=== PATIENT | female | born 1980 ===

== ENCOUNTER 2018-10-20 11:46 | Inpatient (IN) | payer OTHER ==
[2018-10-20 11:46] VITALS: BMI 35.3
--- NOTE | 2018-10-20 12:46 | ED PDOC ---
HPI: Abdomen Time Seen by Provider: 10/20/18 12:30 Chief Complaint (Nursing): GI Problem Chief Complaint (Provider): EPIGASTRIC PAIN History Per: Patient History/Exam Limitations: no limitations Onset/Duration Of Symptoms: Days Outside of [place] travel?: No Current Symptoms Are (Timing): Still Present Severity: Moderate Pain Scale Rating Of: 7 Quality Of Discomfort: "Pain" Associated Symptoms: Nausea, Vomiting, Loss Of Appetite, Back Pain. denies: Fever, Chills, Diarrhea, Constipation, Urinary Symptoms Exacerbating Factors: Food Alleviating Factors: None Last Bowel Movement: Today (8AM TODAY) Additional History Per: Patient Additional Complaint(s): 38 Y/O FEMALE, NO MEDICAL HX PRESENTS TO THE ED WITH 3 DAY HISTORY OF EPIGASTRIC ABD PAIN SINCE MONDAY AFTERNOON AFTER LUNCH. SHE STATES SHE HAS EXP PAIN BEFORE LIGHT USUALLY AFTER EATING. PATIENT PAIN HAS "TWISTING" PAIN RAD TO RIGHT NECK AND MID BACK. SHE STATES SHE VOMITED ONCE THIS AM. NO MEDS TAKEN FOR PAIN AT HOME. PT DENIES SOB, DIARRHEA, URINARY SYMPTOMS, FEVER Abnormal Vaginal Bleeding: No Past Medical History Vital Signs: Last Vital Signs Temp 97 F L 10/20/18 12:05 Pulse 82 10/20/18 12:05 Resp 18 10/20/18 12:05 BP 141/85 10/20/18 12:05 Pulse Ox 99 10/20/18 12:05 - Medical History PMH: No Chronic Diseases - Surgical History Surgical History: No Surg Hx, (x 1) - Family History Family History: States: Unknown Family Hx - Living Arrangements Living Arrangements: With Family - Social History Alcohol: None Drugs: Denies - Immunization History Hx Tetanus Toxoid Vaccination: Yes Hx Influenza Vaccination: Yes Hx Pneumococcal Vaccination: Yes - Home Medications Home Medications: Ambulatory Orders Medication Instructions Recorded No Known Home Med 10/20/18 - Allergies Allergies/Adverse Reactions: Allergies Allergy/AdvReac Type Severity Reaction Status Date / Time No Known Allergies Allergy Verified 10/20/18 12:05 Review of Systems ROS Statement: Except As Marked, All Systems Reviewed And Found Negative Constitutional: Negative for: Fever, Chills, Weakness, Malaise Cardiovascular: Negative for: Chest Pain, Palpitations Respiratory: Negative for: Cough, Shortness of Breath, SOB with Exertion, Wheezing Gastrointestinal: Positive for: Nausea, Vomiting (ONE EPISODE TODAY ), Abdominal Pain. Negative for: Diarrhea, Constipation Genitourinary Female: Negative for: Dysuria Musculoskeletal: Positive for: Neck Pain (RIGHT SIDED ASSOCIATED WITH PAIN), Back Pain Neurological: Negative for: Weakness Physical Exam - Reviewed Nursing Documentation Reviewed: Yes Vital Signs Reviewed: Yes - Physical Exam Appears: Positive for: Well, Non-toxic, No Acute Distress Head Exam: Positive for: ATRAUMATIC, NORMAL INSPECTION, NORMOCEPHALIC Skin: Positive for: Normal Color, Warm, DRY Eye Exam: Positive for: Normal appearance, PERRL ENT: Positive for: Normal ENT Inspection Neck: Positive for: Normal, Painless ROM, Supple Cardiovascular/Chest: Positive for: Regular Rate, Rhythm, Chest Non Tender Respiratory: Positive for: CNT, Normal Breath Sounds Pulses-Radial (L): 2+ Pulses-Radial (R): 2+ Gastrointestinal/Abdominal: Positive for: Normal Exam, Bowel Sounds (NORMOACTIVE ), Soft, Tenderness (EPIGASTRIC/ RUQ). Negative for: Organomegaly, Mass, Distended, Guarding, Rebound Back: Positive for: Normal Inspection. Negative for: L CVA Tenderness, R CVA Tenderness Extremity: Positive for: Normal ROM Neurological/Psych: Positive for: Awake, Alert, Normal Tone, Oriented - Laboratory Results Result Diagrams: 10/20/18 13:15 10/20/18 13:15 Interpretation Of Abn Labs: WBC: 14.5 Urine POC: Negative - ECG ECG Rhythm: Positive for: Sinus Rhythm Interpretation Of ECG: SIGNED AND SEEN BY DR. THORPE O2 Sat by Pulse Oximetry: 99 Pulse Ox Interpretation: Normal - Radiology X-Ray: Viewed By Ia X-Ray Interpretation: No Acute Disease Medical Decision Making Medical Decision Making: --CBC --CMP --LIPASE --TROPONIN --IV INSERTION --TORADOL --ZOFRAN --PEPCID --CXR --US ABD/PELVIC 14:15: PATIENT RE--EVALUATED AT THIS TIME. PATIENT STATES ABD PAIN HAS IMPROVED. PENDING US REPORT. 15:45: DR. PARSONS, SX RESIDENT ONCALL, CALLED FOR SX CONSULT, MD WILL SEE PATIENT. 15:14 ABDOMEN US READ AND REVIEWED BY RADIOLOGIST FINDINGS: LIVER: Measures 16.6 cm in length. Normal echogenicity of the liver parenchyma. Upper limits normal size. No mass. No intrahepatic bile duct dilatation. GALLBLADDER: Extensive cholelithiasis identified layering within the dependent portion. No significant dilatation or mural thickening. No pericholecystic fluid collection or reported sonographic Shrestha sign. COMMON BILE DUCT: Measures 5.0 mm. No stones. No dilatation. PANCREAS: Unremarkable as visualized. No mass. No ductal dilatation. RIGHT KIDNEY: Measures 11.5 cm in length. Normal echogenicity. No calculus, mass, or hydronephrosis. AORTA: No aneurysmal dilatation. IVC: Unremarkable. OTHER FINDINGS: None . IMPRESSION: Cholelithiasis identified within a moderately distended gallbladder. No suspicious gallbladder findings otherwise evident. No reported sonographic Shrestha sign. Normal caliber CBD. No intrahepatic biliary dilatation. Liver upper limits normal size otherwise appear unremarkable. Unremarkable pancreas. 1620: CLINICAL FINDINGS DISCUSSED WITH PATIENT AND AGREES WITH PLAN. PATIENT FOR ADMISSION WITH SX CONSULT DR. ERAZO, SPOKE TO DR. DONALD FOR ADMISSION DX CHOLETHIASIS. Disposition - Clinical Impression Clinical Impression: Cholelithiasis Doctor Will See Patient In The: Hospital Counseled Patient/Family Regarding: Diagnosis - Disposition Disposition Time: 16:20 Condition: STABLE - Pt Status Changed To: Hospital Disposition Of: Inpatient - Admit Certification Admit to Inpatient:: After my assessment, the patient will require hospitalization for at least two midnights. This is because of the severity of symptoms shown, intensity of services needed, and/or the medical risk in this patient being treated as an outpatient. - POA Present On Arrival: None
[2018-10-20 13:23] LABS: BASO % 0.2 % (0.0-2.0); EOS % 0.2 % (0.0-4.0); HEMOGLOBIN 14.5 g/dL (12.0-16.0); LYMPH # 1.1 K/uL (1.0-4.3); LYMPH % 7.8 % (20.0-40.0); MEAN CELL VOLUME 84.8 fl (81.0-99.0); MEAN CORPUSCULAR HEMOGLOBIN 28.5 pg (27.0-31.0); MEAN CORPUSCULAR HGB CONC 33.6 g/dL (33.0-37.0); MONO # 0.7 K/uL (0.0-0.8); MONO % 5.1 % (0.0-10.0); NEUT # 12.6 K/uL (1.8-7.0); NEUT % 86.7 % (50.0-75.0); PLATELET COUNT 274 K/uL (130-400); RBC 5.08 Mil/uL (3.80-5.20); RED CELL DISTRIBUTION WIDTH 12.2 % (11.5-14.5); WHITE BLOOD COUNT 14.5 K/uL (4.8-10.8)
[2018-10-20] MEDS ORDERED: Sodium Chloride 0.9% 1,000 ML IV STA (13:24)
[2018-10-20 13:30] LABS: ALB/GLOB RATIO 1.3 (1.0-2.1); ALBUMIN 4.8 g/dL (3.5-5.0); ALT/SGPT 23 U/L (9-52); AST/SGOT 27 U/L (14-36); BLOOD UREA NITROGEN 16 mg/dl (7-17); CALCIUM 9.5 mg/dL (8.4-10.2); GFR NON-AFRICAN AMERICAN > 60; LIPASE 134 U/L (23-300)
[2018-10-20 13:37] LABS: SQUAMOUS EPITHIAL 3 /hpf (0-5); URINE AMORPHOUS SEDIMENT OCC /ul (<OCC); URINE BACTERIA RARE (<OCC); URINE BILIRUBIN NEGATIVE (NEGATIVE); URINE BLOOD SMALL (NEGATIVE); URINE CLARITY TURBID (Clear); URINE COLOR YELLOW (YELLOW); URINE GLUCOSE (UA) NEG (NEGATIVE); URINE LEUKOCYTE ESTERASE NEG Leu/uL (Negative); URINE PROTEIN 30 mg/dL (NEGATIVE); URINE UROBILINOGEN 0.2-1.0 mg/dL (0.2-1.0)
[2018-10-20 14:50] LABS: LYMPHOCYTE 8 % (20-50); MONOCYTE 5 % (0-10); NEUTROPHIL 87 % (42-75); PLATELET ESTIMATE NORMAL (NORMAL); TOTAL CELLS COUNTED 100
[2018-10-20] MEDS ORDERED: cefTRIAXone (Rocephin) 1 gm Inj IM STA (15:00)
[2018-10-20] MEDS ORDERED: cefTRIAXone 1,000 MG in PED IV SYRINGE 1 SYR IVPB STA (15:01)
--- NOTE | 2018-10-20 15:18 | US ---
Date of service: 10/20/2018 HISTORY: RUQ ABD PAIN COMPARISON: None. TECHNIQUE: Sonographic evaluation of the right upper quadrant of the abdomen. FINDINGS: LIVER: Measures 16.6 cm in length. Normal echogenicity of the liver parenchyma. Upper limits normal size. No mass. No intrahepatic bile duct dilatation. GALLBLADDER: Extensive cholelithiasis identified layering within the dependent portion. No significant dilatation or mural thickening. No pericholecystic fluid collection or reported sonographic Shrestha sign. COMMON BILE DUCT: Measures 5.0 mm. No stones. No dilatation. PANCREAS: Unremarkable as visualized. No mass. No ductal dilatation. RIGHT KIDNEY: Measures 11.5 cm in length. Normal echogenicity. No calculus, mass, or hydronephrosis. AORTA: No aneurysmal dilatation. IVC: Unremarkable. OTHER FINDINGS: None . IMPRESSION: Cholelithiasis identified within a moderately distended gallbladder. No suspicious gallbladder findings otherwise evident. No reported sonographic Shrestha sign. Normal caliber CBD. No intrahepatic biliary dilatation. Liver upper limits normal size otherwise appear unremarkable. Unremarkable pancreas.
--- NOTE | 2018-10-20 16:57 | CP.PCM.CON ---
<Rodríguez Love - Last Filed: 10/20/18 16:57> Past Patient History - Past Social History Alcohol: None Drugs: Denies - CARDIAC Other/Comment: coagulation/thrombus problem - PSYCHIATRIC Hx Substance Use: No - SURGICAL HISTORY Hx Surgeries: No Hx Section: Yes - ANESTHESIA Hx Anesthesia: No Meds Allergies/Adverse Reactions: Allergies Allergy/AdvReac Type Severity Reaction Status Date / Time No Known Allergies Allergy Verified 10/20/18 12:05 Results - Vital Signs Recent Vital Signs: Last Vital Signs Temp 97 F L 10/20/18 12:05 Pulse 82 10/20/18 12:05 Resp 18 10/20/18 12:05 BP 141/85 10/20/18 12:05 Pulse Ox 99 10/20/18 16:51 - Labs Result Diagrams: 10/20/18 13:15 10/20/18 13:15 Labs: Laboratory Results - last 24 hr 10/20/18 10/20/18 10/20/18 13:15 13:15 13:15 WBC 14.5 H RBC 5.08 Hgb 14.5 Hct 43.1 MCV 84.8 MCH 28.5 MCHC 33.6 RDW 12.2 Plt Count 274 MPV 8.0 Neut % (Auto) 86.7 H Lymph % (Auto) 7.8 L [place] % (Auto) 5.1 Eos % (Auto) 0.2 Baso % (Auto) 0.2 Neut # (Auto) 12.6 H Lymph # (Auto) 1.1 [place] # (Auto) 0.7 Eos # (Auto) 0.0 Baso # (Auto) 0.0 Neutrophils % (Manual) 87 H Lymphocytes % (Manual) 8 L Monocytes % (Manual) 5 Platelet Estimate Normal RBC Morphology Normal Sodium 138 Potassium 4.0 Chloride 103 Carbon Dioxide 22 Anion Gap 17 BUN 16 Creatinine 0.4 L Est GFR ( Amer) > 60 Est GFR (Non-Af Amer) > 60 Random Glucose 113 H Calcium 9.5 Total Bilirubin 0.3 AST 27 ALT 23 Alkaline Phosphatase 62 Troponin I < 0.0120 Total Protein 8.3 H Albumin 4.8 Globulin 3.5 Albumin/Globulin Ratio 1.3 Lipase 134 Urine Color Yellow Urine Clarity Turbid Urine pH 7.0 Ur Specific [place] 1.023 Urine Protein 30 Urine Glucose (UA) Neg Urine Ketones Negative Urine Blood Small Urine Nitrate Negative Urine Bilirubin Negative Urine Urobilinogen 0.2-1.0 Ur Leukocyte Esterase Neg Urine RBC (Auto) 6 H Urine Microscopic WBC 2 Ur Squamous Epith Cells 3 Amorphous Sediment Occ H Urine Bacteria Rare <Cricket Hernandez - Last Filed: 10/21/18 11:44> Meds - Medications Medications: Current Medications Sodium Chloride (Sodium Chloride 0.9%) 1,000 mls @ 100 mls/hr IV .Q10H [facility] Last Admin: 10/21/18 04:13 Dose: 100 mls/hr Piperacillin Sod/Tazobactam (Sod 3.375 gm/ Sodium Chloride) 100 mls @ 100 mls/hr IVPB Q6 [facility]; Protocol Last Admin: 10/21/18 04:04 Dose: 100 mls/hr Morphine Sulfate (Morphine) 2 mg IVP Q4 PRN PRN Reason: Pain, moderate (4-7) Pantoprazole Sodium (Protonix Inj) 40 mg IVP DAILY [facility] Last Admin: 10/21/18 09:48 Dose: 40 mg Results - Vital Signs Recent Vital Signs: Last Vital Signs Temp 98.7 F 10/21/18 08:17 Pulse 73 10/21/18 08:17 Resp 18 10/21/18 08:17 BP 112/73 10/21/18 08:17 Pulse Ox 98 10/21/18 08:17 - Labs Result Diagrams: 10/21/18 06:35 10/21/18 04:14 Labs: Laboratory Results - last 24 hr 10/20/18 10/20/18 10/20/18 13:15 13:15 13:15 WBC 14.5 H RBC 5.08 Hgb 14.5 Hct 43.1 MCV 84.8 MCH 28.5 MCHC 33.6 RDW 12.2 Plt Count 274 MPV 8.0 Neut % (Auto) 86.7 H Lymph % (Auto) 7.8 L [place] % (Auto) 5.1 Eos % (Auto) 0.2 Baso % (Auto) 0.2 Neut # (Auto) 12.6 H Lymph # (Auto) 1.1 [place] # (Auto) 0.7 Eos # (Auto) 0.0 Baso # (Auto) 0.0 Neutrophils % (Manual) 87 H Lymphocytes % (Manual) 8 L Monocytes % (Manual) 5 Platelet Estimate Normal RBC Morphology Normal PT INR APTT Sodium 138 Potassium 4.0 Chloride 103 Carbon Dioxide 22 Anion Gap 17 BUN 16 Creatinine 0.4 L Est GFR ( Amer) > 60 Est GFR (Non-Af Amer) > 60 Random Glucose 113 H Calcium 9.5 Phosphorus Magnesium Total Bilirubin 0.3 AST 27 ALT 23 Alkaline Phosphatase 62 Troponin I < 0.0120 Total Protein 8.3 H Albumin 4.8 Globulin 3.5 Albumin/Globulin Ratio 1.3 Lipase 134 Urine Color Yellow Urine Clarity Turbid Urine pH 7.0 Ur Specific [place] 1.023 Urine Protein 30 Urine Glucose (UA) Neg Urine Ketones Negative Urine Blood Small Urine Nitrate Negative Urine Bilirubin Negative Urine Urobilinogen 0.2-1.0 Ur Leukocyte Esterase Neg Urine RBC (Auto) 6 H Urine Microscopic WBC 2 Ur Squamous Epith Cells 3 Amorphous Sediment Occ H Urine Bacteria Rare Blood Type Antibody Screen BBK History Checked 10/21/18 10/21/18 10/21/18 04:14 04:14 04:14 WBC RBC Hgb Hct MCV MCH MCHC RDW Plt Count MPV Neut % (Auto) Lymph % (Auto) [place] % (Auto) Eos % (Auto) Baso % (Auto) Neut # (Auto) Lymph # (Auto) [place] # (Auto) Eos # (Auto) Baso # (Auto) Neutrophils % (Manual) Lymphocytes % (Manual) Monocytes % (Manual) Platelet Estimate RBC Morphology PT 11.9 INR 1.0 APTT 27.7 Sodium 138 Potassium 3.5 L Chloride 108 H Carbon Dioxide 21 L Anion Gap 13 BUN 13 Creatinine 0.5 L Est GFR ( Amer) > 60 Est GFR (Non-Af Amer) > 60 Random Glucose 82 Calcium 8.7 Phosphorus 3.8 Magnesium 2.2 Total Bilirubin 0.5 AST 16 ALT 28 Alkaline Phosphatase 49 Troponin I Total Protein 6.6 Albumin 3.8 Globulin 2.8 Albumin/Globulin Ratio 1.4 Lipase Urine Color Urine Clarity Urine pH Ur Specific [place] Urine Protein Urine Glucose (UA) Urine Ketones Urine Blood Urine Nitrate Urine Bilirubin Urine Urobilinogen Ur Leukocyte Esterase Urine RBC (Auto) Urine Microscopic WBC Ur Squamous Epith Cells Amorphous Sediment Urine Bacteria Blood Type B POSITIVE Antibody Screen Negative BBK History Checked Patient has bt 10/21/18 06:35 WBC 7.0 D RBC 4.56 Hgb 13.1 Hct 38.6 MCV 84.6 MCH 28.8 MCHC 34.1 RDW 12.1 Plt Count 232 MPV 8.2 Neut % (Auto) 57.1 Lymph % (Auto) 32.7 [place] % (Auto) 7.4 Eos % (Auto) 2.5 Baso % (Auto) 0.3 Neut # (Auto) 4.0 Lymph # (Auto) 2.3 [place] # (Auto) 0.5 Eos # (Auto) 0.2 Baso # (Auto) 0.0 Neutrophils % (Manual) Lymphocytes % (Manual) Monocytes % (Manual) Platelet Estimate RBC Morphology PT INR APTT Sodium Potassium Chloride Carbon Dioxide Anion Gap BUN Creatinine Est GFR ( Amer) Est GFR (Non-Af Amer) Random Glucose Calcium Phosphorus Magnesium Total Bilirubin AST ALT Alkaline Phosphatase Troponin I Total Protein Albumin Globulin Albumin/Globulin Ratio Lipase Urine Color Urine Clarity Urine pH Ur Specific [place] Urine Protein Urine Glucose (UA) Urine Ketones Urine Blood Urine Nitrate Urine Bilirubin Urine Urobilinogen Ur Leukocyte Esterase Urine RBC (Auto) Urine Microscopic WBC Ur Squamous Epith Cells Amorphous Sediment Urine Bacteria Blood Type Antibody Screen BBK History Checked Assessment & Plan - Assessment and Plan (Free Text) Assessment: cholecystitis, will book lap [place] make npo past midnight
--- NOTE | 2018-10-20 17:13 | CP.PCM.HP ---
<Arian Bee - Last Filed: 10/20/18 17:13> History of Present Illness - History of Present Illness History of Present Illness: 48 yo F with pmhx of hypertriglyceridemia presents to the ED with 3 day history of epigastric pain. pain is pressure like, intermittent, lasting seconds to minutes, rated 9/10, worse with meals, radiates to back. Associated with nausea and NBNB vomiting. Pt tried to take advil without relief. Denies hx of similar symptoms or gall stones. No fever, chills, abdominal trauma. PMD: with was seen at [facility] clinic Surg: in 2014 Soc: denies: smoking, alcohol, illicit drugs; lives with son Fam: fatty liver; denies htn, dm, gallbladder issues Meds: none NKDA LMP 09/28/2018; regular cycles Present on Admission - Present on Admission Any Indicators Present on Admission: No History of Uncontrolled Diabetes: No Urinary Catheter: No Review of Systems - Cardiovascular Cardiovascular: absent: Chest Pain - Respiratory Respiratory: absent: Cough, Dyspnea - Gastrointestinal Gastrointestinal: Abdominal Pain, Nausea, Vomiting. absent: Constipation, Diarrhea - Genitourinary Genitourinary: absent: Dysuria - Reproductive: Female Reproductive:Female: As Per HPI - Menstruation Menstruation: As Per HPI - Musculoskeletal Musculoskeletal: absent: Abnormal Gait Past Patient History - Past Social History Smoking Status: Never Smoked Alcohol: None Drugs: Denies Home Situation {Lives}: With Family - CARDIAC Hx Hypercholesterolemia: Yes (triglycerides) Other/Comment: coagulation/thrombus problem - PSYCHIATRIC Hx Substance Use: No - SURGICAL HISTORY Hx Surgeries: No Hx Section: Yes - ANESTHESIA Hx Anesthesia: No Meds Allergies/Adverse Reactions: Allergies Allergy/AdvReac Type Severity Reaction Status Date / Time No Known Allergies Allergy Verified 10/20/18 12:05 Physical Exam - Constitutional Appears: No Acute Distress - Eye Exam Eye Exam: EOMI - ENT Exam ENT Exam: Mucous Membranes Moist - Respiratory Exam Respiratory Exam: Clear to Auscultation Bilateral, NORMAL BREATHING PATTERN. absent: Wheezes - Cardiovascular Exam Cardiovascular Exam: REGULAR RHYTHM, +S1, +S2 - GI/Abdominal Exam GI & Abdominal Exam: Guarding, Normal Bowel Sounds, Soft, Tenderness Additional comments: Shrestha's positive - Back Exam Back exam: absent: CVA tenderness (L), CVA tenderness (R) - Neurological Exam Neurological exam: Alert, CN II-XII Intact, Oriented x3 - Psychiatric Exam Psychiatric exam: Normal Affect, Normal Mood Results - Vital Signs Recent Vital Signs: Last Vital Signs Temp 97 F L 10/20/18 12:05 Pulse 82 10/20/18 12:05 Resp 18 10/20/18 12:05 BP 141/85 10/20/18 12:05 Pulse Ox 99 10/20/18 17:02 - Labs Result Diagrams: 10/20/18 13:15 10/20/18 13:15 Labs: Laboratory Results - last 24 hr 10/20/18 10/20/18 10/20/18 13:15 13:15 13:15 WBC 14.5 H RBC 5.08 Hgb 14.5 Hct 43.1 MCV 84.8 MCH 28.5 MCHC 33.6 RDW 12.2 Plt Count 274 MPV 8.0 Neut % (Auto) 86.7 H Lymph % (Auto) 7.8 L [place] % (Auto) 5.1 Eos % (Auto) 0.2 Baso % (Auto) 0.2 Neut # (Auto) 12.6 H Lymph # (Auto) 1.1 [place] # (Auto) 0.7 Eos # (Auto) 0.0 Baso # (Auto) 0.0 Neutrophils % (Manual) 87 H Lymphocytes % (Manual) 8 L Monocytes % (Manual) 5 Platelet Estimate Normal RBC Morphology Normal Sodium 138 Potassium 4.0 Chloride 103 Carbon Dioxide 22 Anion Gap 17 BUN 16 Creatinine 0.4 L Est GFR ( Amer) > 60 Est GFR (Non-Af Amer) > 60 Random Glucose 113 H Calcium 9.5 Total Bilirubin 0.3 AST 27 ALT 23 Alkaline Phosphatase 62 Troponin I < 0.0120 Total Protein 8.3 H Albumin 4.8 Globulin 3.5 Albumin/Globulin Ratio 1.3 Lipase 134 Urine Color Yellow Urine Clarity Turbid Urine pH 7.0 Ur Specific [place] 1.023 Urine Protein 30 Urine Glucose (UA) Neg Urine Ketones Negative Urine Blood Small Urine Nitrate Negative Urine Bilirubin Negative Urine Urobilinogen 0.2-1.0 Ur Leukocyte Esterase Neg Urine RBC (Auto) 6 H Urine Microscopic WBC 2 Ur Squamous Epith Cells 3 Amorphous Sediment Occ H Urine Bacteria Rare Assessment & Plan - Assessment and Plan (Free Text) Assessment: 48 yo F with pmhx of hypertriglyceridemia presents to the ED with 3 day history of epigastric pain. Admitted for acute cholecystitis. Plan: Cholelithiasis US Abdo: Cholelithiasis identified within a moderately distended gallbladder. No suspicious gallbladder findings otherwise evident. No reported sonographic Shrestha sign. Normal caliber CBD. No intrahepatic biliary dilatation. Liver upper limits normal size otherwise appear unremarkable. Unremarkable pancreas. -Admit to med surg -Surgery consulted: Dr. Hernandez: estevan appreciated -NPO -Pain management: morphine -IVF: NS -Nausea: sofran -abx: IV zosyn -f/u am labs DVT prophylaxis -SCD; activity as tolerated Case and plan d/w Dr. Elpidio Bee MD PGY-2 <Jonathan Magallanes D - Last Filed: 10/20/18 19:08> Results - Vital Signs Recent Vital Signs: Last Vital Signs Temp 97.6 F 10/20/18 17:29 Pulse 76 10/20/18 17:29 Resp 20 10/20/18 17:29 BP 126/67 10/20/18 17:29 Pulse Ox 98 10/20/18 17:29 - Labs Result Diagrams: 10/20/18 13:15 10/20/18 13:15 Labs: Laboratory Results - last 24 hr 10/20/18 10/20/18 10/20/18 13:15 13:15 13:15 WBC 14.5 H RBC 5.08 Hgb 14.5 Hct 43.1 MCV 84.8 MCH 28.5 MCHC 33.6 RDW 12.2 Plt Count 274 MPV 8.0 Neut % (Auto) 86.7 H Lymph % (Auto) 7.8 L [place] % (Auto) 5.1 Eos % (Auto) 0.2 Baso % (Auto) 0.2 Neut # (Auto) 12.6 H Lymph # (Auto) 1.1 [place] # (Auto) 0.7 Eos # (Auto) 0.0 Baso # (Auto) 0.0 Neutrophils % (Manual) 87 H Lymphocytes % (Manual) 8 L Monocytes % (Manual) 5 Platelet Estimate Normal RBC Morphology Normal Sodium 138 Potassium 4.0 Chloride 103 Carbon Dioxide 22 Anion Gap 17 BUN 16 Creatinine 0.4 L Est GFR ( Amer) > 60 Est GFR (Non-Af Amer) > 60 Random Glucose 113 H Calcium 9.5 Total Bilirubin 0.3 AST 27 ALT 23 Alkaline Phosphatase 62 Troponin I < 0.0120 Total Protein 8.3 H Albumin 4.8 Globulin 3.5 Albumin/Globulin Ratio 1.3 Lipase 134 Urine Color Yellow Urine Clarity Turbid Urine pH 7.0 Ur Specific [place] 1.023 Urine Protein 30 Urine Glucose (UA) Neg Urine Ketones Negative Urine Blood Small Urine Nitrate Negative Urine Bilirubin Negative Urine Urobilinogen 0.2-1.0 Ur Leukocyte Esterase Neg Urine RBC (Auto) 6 H Urine Microscopic WBC 2 Ur Squamous Epith Cells 3 Amorphous Sediment Occ H Urine Bacteria Rare Attending/Attestation - Attestation I have personally seen and examined this patient.: Yes I have fully participated in the care of the patient.: Yes I have reviewed all pertinent clinical information: Yes Notes (Text): 10/20/18 19:07 Patient seen and examined with resident. Case discussed and agreed with assessment and plan of management.
[2018-10-20] MEDS: Sodium Chloride 0.9% 1,000 ML IV SCH (19:22)
[2018-10-20] MEDS ORDERED: Piperacillin/Tazobact 3.375 gm Inj IVPB ONE (21:36)
[2018-10-20] MEDS: Piperacillin/Tazobact 3.375 GM in Sodium Chloride 0.9% 100 ML IVPB SCH (21:41)
[2018-10-21] MEDS ORDERED: Piperacillin/Tazobact 3.375 gm Inj IVPB ONE (03:55)
[2018-10-21] MEDS: Piperacillin/Tazobact 3.375 GM in Sodium Chloride 0.9% 100 ML IVPB SCH ×4 (04:04→21:31)
[2018-10-21] MEDS: Sodium Chloride 0.9% 1,000 ML IV SCH ×2 (04:13→15:38)
[2018-10-21 04:34] LABS: PROTHROMBIN TIME 11.9 Seconds (9.8-13.1)
[2018-10-21 04:37] LABS: PARTIAL THROMBOPLASTIN TIME 27.7 Seconds (25.6-37.1)
[2018-10-21 04:58] LABS: ALB/GLOB RATIO 1.4 (1.0-2.1); ALBUMIN 3.8 g/dL (3.5-5.0); ALT/SGPT 28 U/L (9-52); AST/SGOT 16 U/L (14-36); BLOOD UREA NITROGEN 13 mg/dl (7-17); CALCIUM 8.7 mg/dL (8.4-10.2); GFR NON-AFRICAN AMERICAN > 60
[2018-10-21 07:20] LABS: BASO % 0.3 % (0.0-2.0); EOS # 0.2 K/uL (0.0-0.7); EOS % 2.5 % (0.0-4.0); HEMOGLOBIN 13.1 g/dL (12.0-16.0); LYMPH # 2.3 K/uL (1.0-4.3); LYMPH % 32.7 % (20.0-40.0); MEAN CELL VOLUME 84.6 fl (81.0-99.0); MEAN CORPUSCULAR HEMOGLOBIN 28.8 pg (27.0-31.0); MEAN CORPUSCULAR HGB CONC 34.1 g/dL (33.0-37.0); MEAN PLATELET VOLUME 8.2 fl (7.2-11.7); MONO # 0.5 K/uL (0.0-0.8); MONO % 7.4 % (0.0-10.0); NEUT % 57.1 % (50.0-75.0); NRBC % 0.1 % (0.0-0.0); RBC 4.56 Mil/uL (3.80-5.20); RED CELL DISTRIBUTION WIDTH 12.1 % (11.5-14.5)
[2018-10-21] MEDS ORDERED: Potassium Chloride 20 mEq ER Tab PO ONE (08:05)
--- NOTE | 2018-10-21 10:25 | CARD ---
APPROVED REPORT Date of service: 10/20/2018 EKG Measurement Heart [id number] <Conclusion> Normal sinus rhythm Normal ECG
--- NOTE | 2018-10-21 12:26 | CP.PCM.PN ---
Subjective - Date & Time of Evaluation Date of Evaluation: 10/21/18 Time of Evaluation: 09:00 - Subjective Subjective: General Surgery Note for Dr. Hernandez patient seen and examined at bedside. No acute event overnight. Patient still reports pain and nausea. She is not hungry. Patient wants to get surgery in order to feel better. Denies fever/chills chest pain, SOB, vomiting. Objective - Vital Signs/Intake and Output Vital Signs (last 24 hours): Temp Pulse Resp BP Pulse Ox 98.4 F 68 18 108/70 98 10/21/18 12:18 10/21/18 12:18 10/21/18 12:18 10/21/18 12:18 10/21/18 12:18 - Medications Medications: Current Medications Sodium Chloride (Sodium Chloride 0.9%) 1,000 mls @ 100 mls/hr IV .Q10H [facility] Last Admin: 10/21/18 04:13 Dose: 100 mls/hr Piperacillin Sod/Tazobactam (Sod 3.375 gm/ Sodium Chloride) 100 mls @ 100 m ls/hr IVPB Q6 [facility]; Protocol Last Admin: 10/21/18 04:04 Dose: 100 mls/hr Morphine Sulfate (Morphine) 2 mg IVP Q4 PRN PRN Reason: Pain, moderate (4-7) Pantoprazole Sodium (Protonix Inj) 40 mg IVP DAILY [facility] Last Admin: 10/21/18 09:48 Dose: 40 mg - Labs Labs: 10/21/18 06:35 10/21/18 04:14 PT 11.9 Seconds (9.8-13.1) 10/21/18 04:14 INR 1.0 10/21/18 04:14 APTT 27.7 Seconds (25.6-37.1) 10/21/18 04:14 - Constitutional Appears: No Acute Distress - Head Exam Head Exam: ATRAUMATIC, NORMOCEPHALIC - Eye Exam Eye Exam: EOMI, Normal appearance Pupil Exam: PERRL - ENT Exam ENT Exam: Mucous Membranes Moist - Respiratory Exam Respiratory Exam: NORMAL BREATHING PATTERN - Cardiovascular Exam Cardiovascular Exam: REGULAR RHYTHM - GI/Abdominal Exam GI & Abdominal Exam: Soft, Tenderness (RUQ), Normal Bowel Sounds. absent: Distended, Firm, Guarding, Rigid, Rebound - Extremities Exam Extremities Exam: Normal Capillary Refill - Neurological Exam Neurological Exam: Alert, Awake, Oriented x3 - Psychiatric Exam Psychiatric exam: Normal Affect, Normal Mood - Skin Skin Exam: Dry, Intact, Warm Assessment and Plan - Assessment and Plan (Free Text) Assessment: 38F with cholecystitis Plan: -NPO past MN -Pain control -Anti-emetics PRN -Plan for OR Monday -Discussed with Dr. David Love PGY2
--- NOTE | 2018-10-21 13:43 | CP.PCM.PN ---
<Shanna Kirkland - Last Filed: 10/21/18 14:02> Subjective - Date & Time of Evaluation Date of Evaluation: 10/21/18 Time of Evaluation: 13:42 - Subjective Subjective: Patient seen and examined bedside. Continues to complain of pain, nausea and loss of appetite but denies fever, chills, vomiting, chest pain and shortness of breath.m OR planned for tomorrow, 10/22. Objective - Vital Signs/Intake and Output Vital Signs (last 24 hours): Temp Pulse Resp BP Pulse Ox 98.4 F 68 18 108/70 98 10/21/18 12:18 10/21/18 12:18 10/21/18 12:18 10/21/18 12:18 10/21/18 12:18 - Medications Medications: Current Medications Sodium Chloride (Sodium Chloride 0.9%) 1,000 mls @ 100 mls/hr IV .Q10H COUNT INCLUDES THE [facility] Last Admin: 10/21/18 04:13 Dose: 100 mls/hr Piperacillin Sod/Tazobactam (Sod 3.375 gm/ Sodium Chloride) 100 mls @ 100 mls/hr IVPB Q6 COUNT INCLUDES THE [facility]; Protocol Last Admin: 10/21/18 12:45 Dose: 100 mls/hr Morphine Sulfate (Morphine) 2 mg IVP Q4 PRN PRN Reason: Pain, moderate (4-7) Pantoprazole Sodium (Protonix Inj) 40 mg IVP DAILY COUNT INCLUDES THE [facility] Last Admin: 10/21/18 09:48 Dose: 40 mg - Labs Labs: 10/21/18 06:35 10/21/18 04:14 PT 11.9 Seconds (9.8-13.1) 10/21/18 04:14 INR 1.0 10/21/18 04:14 APTT 27.7 Seconds (25.6-37.1) 10/21/18 04:14 - Constitutional Appears: Non-toxic - Head Exam Head Exam: NORMAL INSPECTION - Respiratory Exam Respiratory Exam: NORMAL BREATHING PATTERN. absent: Respiratory Distress - Cardiovascular Exam Cardiovascular Exam: REGULAR RHYTHM - GI/Abdominal Exam GI & Abdominal Exam: Tenderness (RUQ, mildly tender to deep palpation) - Extremities Exam Extremities Exam: absent: Pedal Edema - Neurological Exam Neurological Exam: Alert, Awake, Oriented x3 - Psychiatric Exam Psychiatric exam: Normal Affect, Normal Mood - Skin Skin Exam: Dry, Intact, Normal Color, Warm Assessment and Plan - Assessment and Plan (Free Text) Assessment: 48 yo F with pmhx of hypertriglyceridemia presents to the ED with 3 day history of epigastric pain, admitted for acute cholecystitis. US Abdo: Cholelithiasis identified within a moderately distended gallbladder. No suspicious gallbladder findings otherwise evident. No reported sonographic Shrestha sign. Normal caliber CBD. No intrahepatic biliary dilatation. Liver upper limits normal size otherwise appear unremarkable. Unremarkable pancreas. Plan: Cholelithiasis -Surgery consulted: Dr. Hernandez: OR Monday, 10/22 -NPO -Pain management: morphine -IVF: NS -Nausea: zofran -abx: IV zosyn DVT prophylaxis -SCD; activity as tolerated <Jonathan Magallanes - Last Filed: 10/21/18 14:33> Objective - Vital Signs/Intake and Output Vital Signs (last 24 hours): Temp Pulse Resp BP Pulse Ox 98.4 F 68 18 108/70 98 10/21/18 12:18 10/21/18 12:18 10/21/18 12:18 10/21/18 12:18 10/21/18 12:18 - Medications Medications: Current Medications Sodium Chloride (Sodium Chloride 0.9%) 1,000 mls @ 100 mls/hr IV .Q10H [facility] Last Admin: 10/21/18 04:13 Dose: 100 mls/hr Piperacillin Sod/Tazobactam (Sod 3.375 gm/ Sodium Chloride) 100 mls @ 100 mls/hr IVPB Q6 [facility]; Protocol Last Admin: 10/21/18 12:45 Dose: 100 mls/hr Morphine Sulfate (Morphine) 2 mg IVP Q4 PRN PRN Reason: Pain, moderate (4-7) Pantoprazole Sodium (Protonix Inj) 40 mg IVP DAILY [facility] Last Admin: 10/21/18 09:48 Dose: 40 mg - Labs Labs: 10/21/18 06:35 10/21/18 04:14 PT 11.9 Seconds (9.8-13.1) 10/21/18 04:14 INR 1.0 10/21/18 04:14 APTT 27.7 Seconds (25.6-37.1) 10/21/18 04:14 Attending/Attestation - Attestation I have personally seen and examined this patient.: Yes I have fully participated in the care of the patient.: Yes I have reviewed all pertinent clinical information, including history, physical exam and plan: Yes Notes (Text): 10/21/18 14:32 Patient seen and examined with resident. Case discussed and agreed with assessment and plan of surgery tomorrow.
[2018-10-22] MEDS: Lactated Ringer's 1,000 ML IV SCH ×3 (00:16→18:16)
[2018-10-22] MEDS: Piperacillin/Tazobact 3.375 GM in Sodium Chloride 0.9% 100 ML IVPB SCH ×3 (04:00→16:28)
[2018-10-22 05:58] LABS: HEMOGLOBIN 12.8 g/dL (12.0-16.0); MEAN CELL VOLUME 85.2 fl (81.0-99.0); MEAN CORPUSCULAR HGB CONC 34.1 g/dL (33.0-37.0); RBC 4.43 Mil/uL (3.80-5.20); RED CELL DISTRIBUTION WIDTH 12.2 % (11.5-14.5); WHITE BLOOD COUNT 7.1 K/uL (4.8-10.8)
[2018-10-22 06:14] LABS: ALB/GLOB RATIO 1.3 (1.0-2.1); ALBUMIN 3.7 g/dL (3.5-5.0); ALT/SGPT 27 U/L (9-52); AST/SGOT 17 U/L (14-36); BLOOD UREA NITROGEN 14 mg/dl (7-17); CALCIUM 8.9 mg/dL (8.4-10.2); GFR NON-AFRICAN AMERICAN > 60
--- NOTE | 2018-10-22 10:15 | RAD ---
Date of service: 10/20/2018 HISTORY: COMPARISON: No prior. TECHNIQUE: Chest PA and lateral views FINDINGS: LUNGS: No active pulmonary disease. PLEURA: No significant pleural effusion identified. No pneumothorax apparent. CARDIOVASCULAR: No aortic atherosclerotic calcification present. Prominent cardiac silhouette. No pulmonary vascular congestion. OSSEOUS STRUCTURES: No significant abnormalities. VISUALIZED UPPER ABDOMEN: Normal. OTHER FINDINGS: None. IMPRESSION: No acute pulmonary disease. Cardiac silhouette appears prominent. No pulmonary vascular congestion.
[2018-10-22] MEDS ORDERED: Midazolam 2 MG/2 ML VIAL ONE (11:12)
[2018-10-22] MEDS ORDERED: Lidocaine 4% (Laryng-O-Jet) Kit MM ONE (11:12)
[2018-10-22] MEDS ORDERED: Rocuronium 10 mg/ml (5 ml) ONE (11:12)
[2018-10-22] MEDS ORDERED: Propofol 10 mg/ml Inj (20 ML) ONE (11:12)
[2018-10-22] MEDS ORDERED: Succinylcholine 200 mg/10 ml Inj IV ONE (11:18)
[2018-10-22] MEDS ORDERED: Succinylcholine Chloride 20 mg/ml Syr (5 ml) IV ONE (11:19)
[2018-10-22] MEDS ORDERED: Neostigmine 1:1000 (1 mg/ml) Inj ONE (11:19)
[2018-10-22] MEDS ORDERED: Lactated Ringer's 1,000 ML IV ONE (12:17)
[2018-10-22] MEDS ORDERED: Bupivacaine 0.5% Inj(30mL) ONE (12:19)
[2018-10-22] MEDS ORDERED: Dexamethasone 4 mg/1 ml ONE (13:06)
--- NOTE | 2018-10-22 13:33 | PCM.SURG1 ---
<Yash Cabrera - Last Filed: 10/22/18 13:31> Surgeon's Initial Post Op Note - Surgeon's Notes Surgeon: Dr. Moreau Drug Room Operator: Dr. Rick Deleon PGY3 Type of Anesthesia: General Endo Pre-Operative Diagnosis: cholecystitis Operative Findings: same Post-Operative Diagnosis: same Operation Performed: laparoscopic cholecystectomy Specimen/Specimens Removed: gallbladder Estimated Blood Loss: EBL {In ML}: 40 Blood Products Given: N/A Drains Used: No Drains Post-Op Condition: Good Date of Surgery/Procedure: 10/22/18 Time of Surgery/Procedure: 13:32 <Jhonny Moreau - Last Filed: 10/22/18 13:46> Surgeon's Initial Post Op Note - Surgeon's Notes Surgeon: Dr. Catherine Drug Room Operator: Dr. Rick Latham PGY3
[2018-10-22] MEDS ORDERED: Lactated Ringer's 500 ML IV ONE (13:38)
[2018-10-22] MEDS ORDERED: HYDROmorphone 0.5 mg/0.5 ml ISec IVP PRN (13:45)
[2018-10-22] MEDS ORDERED: Lactated Ringer's 1,000 ML IV SCH (13:45)
[2018-10-22 15:19] VITALS: RESP 18
[2018-10-22] MEDS ORDERED: Oxycodone/Acetaminophen 5/325 mg Tab PO PRN (15:37)
[2018-10-22 16:06] VITALS: PULSE 94
[2018-10-22 16:13] VITALS: BP 125/78; TEMP 98.1; O2SAT 94
--- NOTE | 2018-10-22 16:53 | CP.PCM.DIS ---
<Love Robin - Last Filed: 10/22/18 17:19> Provider - Provider Date of Admission: 10/20/18 16:42 Attending physician: Jonathan Magallanes MD Consults: 10/20/18 17:18 General Surgery Consult Stat Comment: Consulting Provider: Cricket Hernandez Consulting Physician: Cricket Hernandez Reason for Consult: cholecystitis Time Spent in preparation of Discharge (in minutes): 30 Hospital Course - Lab Results Lab Results: Most Recent Lab Values WBC 7.1 K/uL (4.8-10.8) 10/22/18 04:50 RBC 4.43 Mil/uL (3.80-5.20) 10/22/18 04:50 Hgb 12.8 g/dL (12.0-16.0) 10/22/18 04:50 Hct 37.7 % (34.0-47.0) 10/22/18 04:50 MCV 85.2 fl (81.0-99.0) 10/22/18 04:50 MCH 29.0 pg (27.0-31.0) 10/22/18 04:50 MCHC 34.1 g/dL (33.0-37.0) 10/22/18 04:50 RDW 12.2 % (11.5-14.5) 10/22/18 04:50 Plt Count 238 K/uL (130-400) 10/22/18 04:50 MPV 8.2 fl (7.2-11.7) 10/21/18 06:35 Neut % (Auto) 57.1 % (50.0-75.0) 10/21/18 06:35 Lymph % (Auto) 32.7 % (20.0-40.0) 10/21/18 06:35 Owen % (Auto) 7.4 % (0.0-10.0) 10/21/18 06:35 Eos % (Auto) 2.5 % (0.0-4.0) 10/21/18 06:35 Baso % (Auto) 0.3 % (0.0-2.0) 10/21/18 06:35 Neut # (Auto) 4.0 K/uL (1.8-7.0) 10/21/18 06:35 Lymph # (Auto) 2.3 K/uL (1.0-4.3) 10/21/18 06:35 Owen # (Auto) 0.5 K/uL (0.0-0.8) 10/21/18 06:35 Eos # (Auto) 0.2 K/uL (0.0-0.7) 10/21/18 06:35 Baso # (Auto) 0.0 K/uL (0.0-0.2) 10/21/18 06:35 Neutrophils % (Manual) 87 % (42-75) H 10/20/18 13:15 Lymphocytes % (Manual) 8 % (20-50) L 10/20/18 13:15 Monocytes % (Manual) 5 % (0-10) 10/20/18 13:15 Platelet Estimate Normal (NORMAL) 10/20/18 13:15 RBC Morphology Normal (NORMAL) 10/20/18 13:15 PT 11.9 Seconds (9.8-13.1) 10/21/18 04:14 INR 1.0 10/21/18 04:14 APTT 27.7 Seconds (25.6-37.1) 10/21/18 04:14 Sodium 137 mmol/l (132-148) 10/22/18 04:50 Potassium 4.0 MMOL/L (3.6-5.0) 10/22/18 04:50 Chloride 105 mmol/L (98-107) 10/22/18 04:50 Carbon Dioxide 24 mmol/L (22-30) 10/22/18 04:50 Anion Gap 12 (10-20) 10/22/18 04:50 BUN 14 mg/dl (7-17) 10/22/18 04:50 Creatinine 0.6 mg/dl (0.7-1.2) L 10/22/18 04:50 Est GFR ( Amer) > 60 10/22/18 04:50 Est GFR (Non-Af Amer) > 60 10/22/18 04:50 Random Glucose 78 mg/dL (65-105) 10/22/18 04:50 Calcium 8.9 mg/dL (8.4-10.2) 10/22/18 04:50 Phosphorus 3.8 mg/dl (2.5-4.5) 10/21/18 04:14 Magnesium 2.2 MG/DL (1.6-2.3) 10/21/18 04:14 Total Bilirubin 0.7 mg/dl (0.2-1.3) 10/22/18 04:50 AST 17 U/L (14-36) 10/22/18 04:50 ALT 27 U/L (9-52) 10/22/18 04:50 Alkaline Phosphatase 42 U/L (38-126) 10/22/18 04:50 Troponin I < 0.0120 ng/mL (0.00-0.120) 10/20/18 13:15 Total Protein 6.5 G/DL (6.3-8.2) 10/22/18 04:50 Albumin 3.7 g/dL (3.5-5.0) 10/22/18 04:50 Globulin 2.8 gm/dL (2.2-3.9) 10/22/18 04:50 Albumin/Globulin Ratio 1.3 (1.0-2.1) 10/22/18 04:50 Lipase 134 U/L (23-300) 10/20/18 13:15 Urine Color Yellow (YELLOW) 10/20/18 13:15 Urine Clarity Turbid (Clear) 10/20/18 13:15 Urine pH 7.0 (5.0-8.0) 10/20/18 13:15 Ur Specific [place] 1.023 (1.003-1.030) 10/20/18 13:15 Urine Protein 30 mg/dL (NEGATIVE) 10/20/18 13:15 Urine Glucose (UA) Neg mg/dL (NEGATIVE) 10/20/18 13:15 Urine Ketones Negative mg/dL (NEGATIVE) 10/20/18 13:15 Urine Blood Small (NEGATIVE) 10/20/18 13:15 Urine Nitrate Negative (NEGATIVE) 10/20/18 13:15 Urine Bilirubin Negative (NEGATIVE) 10/20/18 13:15 Urine Urobilinogen 0.2-1.0 mg/dL (0.2-1.0) 10/20/18 13:15 Ur Leukocyte Esterase Neg Elle/uL (Negative) 10/20/18 13:15 Urine RBC (Auto) 6 /hpf (0-3) H 10/20/18 13:15 Urine Microscopic WBC 2 /hpf (0-5) 10/20/18 13:15 Ur Squamous Epith Cells 3 /hpf (0-5) 10/20/18 13:15 Amorphous Sediment Occ /ul (<OCC) H 10/20/18 13:15 Urine Bacteria Rare (<OCC) 10/20/18 13:15 Blood Type B POSITIVE 10/22/18 04:50 Antibody Screen Negative 10/22/18 04:50 BBK History Checked Patient has bt 10/22/18 04:50 - Hospital Course Hospital Course: 48 yo F with pmhx of hypertriglyceridemia who presented to ED with RUQ pain, admitted for cholecystectomy. Patient was seen today, POD 0 sp laparoscopic cholecystecomy, doing fairly well with pain as expected, tolerated with current pain medication regimen. Patient will be discharged home with Ibuprofen & percocet for pain. 1. Acute cholecystitis -Pain med regimen 2. hypertriglyceridemia Discharge Exam - Head Exam Head Exam: NORMAL INSPECTION Additional comments: obese female - Eye Exam Eye Exam: EOMI - ENT Exam ENT Exam: Mucous Membranes Moist - Neck Exam Neck exam: Full Rom - Respiratory Exam Respiratory Exam: NORMAL BREATHING PATTERN - Cardiovascular Exam Cardiovascular Exam: REGULAR RHYTHM, +S1, +S2 - GI/Abdominal Exam Additional comments: sites of laparoscopic cholecystectomy c/d/i; minimal tenderness, no rigidity, no guarding - Extremities Exam Extremities exam: normal inspection - Neurological Exam Neurological exam: Alert, Oriented x3 - Skin Skin Exam: Dry Discharge Plan - Discharge Medications Prescriptions: Docusate Sodium [Colace] 200 mg PO DAILY PRN #30 capsule PRN Reason: Constipation Ibuprofen [Motrin Tab] 600 mg PO Q6 PRN #20 tab PRN Reason: Pain, Moderate (4-7) oxyCODONE/Acetaminophen [Percocet 5/325 mg Tab] 1 ea PO Q6 PRN #20 tab PRN Reason: Pain, Severe (8-10) - Follow Up Plan Condition: STABLE Disposition: HOME/ ROUTINE Instructions: Gallstones Referrals: [facility] [Provider Group] Jhonny Moreau MD [Staff Provider] - <Jonathan Magallanes - Last Filed: 10/23/18 11:11> Provider - Provider Date of Admission: 10/20/18 16:42 Attending physician: Jonathan Magallanes MD Consults: 10/20/18 17:18 General Surgery Consult Stat Comment: Consulting Provider: Cricket Hernandez Consulting Physician: Cricket Hernandez Reason for Consult: cholecystitis Hospital Course - Lab Results Lab Results: Most Recent Lab Values WBC 7.1 K/uL (4.8-10.8) 10/22/18 04:50 RBC 4.43 Mil/uL (3.80-5.20) 10/22/18 04:50 Hgb 12.8 g/dL (12.0-16.0) 10/22/18 04:50 Hct 37.7 % (34.0-47.0) 10/22/18 04:50 MCV 85.2 fl (81.0-99.0) 10/22/18 04:50 MCH 29.0 pg (27.0-31.0) 10/22/18 04:50 MCHC 34.1 g/dL (33.0-37.0) 10/22/18 04:50 RDW 12.2 % (11.5-14.5) 10/22/18 04:50 Plt Count 238 K/uL (130-400) 10/22/18 04:50 MPV 8.2 fl (7.2-11.7) 10/21/18 06:35 Neut % (Auto) 57.1 % (50.0-75.0) 10/21/18 06:35 Lymph % (Auto) 32.7 % (20.0-40.0) 10/21/18 06:35 Owen % (Auto) 7.4 % (0.0-10.0) 10/21/18 06:35 Eos % (Auto) 2.5 % (0.0-4.0) 10/21/18 06:35 Baso % (Auto) 0.3 % (0.0-2.0) 10/21/18 06:35 Neut # (Auto) 4.0 K/uL (1.8-7.0) 10/21/18 06:35 Lymph # (Auto) 2.3 K/uL (1.0-4.3) 10/21/18 06:35 Owen # (Auto) 0.5 K/uL (0.0-0.8) 10/21/18 06:35 Eos # (Auto) 0.2 K/uL (0.0-0.7) 10/21/18 06:35 Baso # (Auto) 0.0 K/uL (0.0-0.2) 10/21/18 06:35 Neutrophils % (Manual) 87 % (42-75) H 10/20/18 13:15 Lymphocytes % (Manual) 8 % (20-50) L 10/20/18 13:15 Monocytes % (Manual) 5 % (0-10) 10/20/18 13:15 Platelet Estimate Normal (NORMAL) 10/20/18 13:15 RBC Morphology Normal (NORMAL) 10/20/18 13:15 PT 11.9 Seconds (9.8-13.1) 10/21/18 04:14 INR 1.0 10/21/18 04:14 APTT 27.7 Seconds (25.6-37.1) 10/21/18 04:14 Sodium 137 mmol/l (132-148) 10/22/18 04:50 Potassium 4.0 MMOL/L (3.6-5.0) 10/22/18 04:50 Chloride 105 mmol/L (98-107) 10/22/18 04:50 Carbon Dioxide 24 mmol/L (22-30) 10/22/18 04:50 Anion Gap 12 (10-20) 10/22/18 04:50 BUN 14 mg/dl (7-17) 10/22/18 04:50 Creatinine 0.6 mg/dl (0.7-1.2) L 10/22/18 04:50 Est GFR ( Amer) > 60 10/22/18 04:50 Est GFR (Non-Af Amer) > 60 10/22/18 04:50 Random Glucose 78 mg/dL (65-105) 10/22/18 04:50 Calcium 8.9 mg/dL (8.4-10.2) 10/22/18 04:50 Phosphorus 3.8 mg/dl (2.5-4.5) 10/21/18 04:14 Magnesium 2.2 MG/DL (1.6-2.3) 10/21/18 04:14 Total Bilirubin 0.7 mg/dl (0.2-1.3) 10/22/18 04:50 AST 17 U/L (14-36) 10/22/18 04:50 ALT 27 U/L (9-52) 10/22/18 04:50 Alkaline Phosphatase 42 U/L (38-126) 10/22/18 04:50 Troponin I < 0.0120 ng/mL (0.00-0.120) 10/20/18 13:15 Total Protein 6.5 G/DL (6.3-8.2) 10/22/18 04:50 Albumin 3.7 g/dL (3.5-5.0) 10/22/18 04:50 Globulin 2.8 gm/dL (2.2-3.9) 10/22/18 04:50 Albumin/Globulin Ratio 1.3 (1.0-2.1) 10/22/18 04:50 Lipase 134 U/L (23-300) 10/20/18 13:15 Urine Color Yellow (YELLOW) 10/20/18 13:15 Urine Clarity Turbid (Clear) 10/20/18 13:15 Urine pH 7.0 (5.0-8.0) 10/20/18 13:15 Ur Specific [place] 1.023 (1.003-1.030) 10/20/18 13:15 Urine Protein 30 mg/dL (NEGATIVE) 10/20/18 13:15 Urine Glucose (UA) Neg mg/dL (NEGATIVE) 10/20/18 13:15 Urine Ketones Negative mg/dL (NEGATIVE) 10/20/18 13:15 Urine Blood Small (NEGATIVE) 10/20/18 13:15 Urine Nitrate Negative (NEGATIVE) 10/20/18 13:15 Urine Bilirubin Negative (NEGATIVE) 10/20/18 13:15 Urine Urobilinogen 0.2-1.0 mg/dL (0.2-1.0) 10/20/18 13:15 Ur Leukocyte Esterase Neg Elle/uL (Negative) 10/20/18 13:15 Urine RBC (Auto) 6 /hpf (0-3) H 10/20/18 13:15 Urine Microscopic WBC 2 /hpf (0-5) 10/20/18 13:15 Ur Squamous Epith Cells 3 /hpf (0-5) 10/20/18 13:15 Amorphous Sediment Occ /ul (<OCC) H 10/20/18 13:15 Urine Bacteria Rare (<OCC) 10/20/18 13:15 Blood Type B POSITIVE 10/22/18 04:50 Antibody Screen Negative 10/22/18 04:50 BBK History Checked Patient has bt 10/22/18 04:50 Attending/Attestation - Attestation I have personally seen and examined this patient.: Yes I have fully participated in the care of the patient.: Yes I have reviewed all pertinent clinical information, including history, physical exam and plan: Yes Notes (Text): 10/23/18 11:11 Patient seen and examined with resident. Case discussed and agreed with assessment
--- NOTE | 2018-10-23 00:31 | OP ---
PROCEDURE DATE: 10/22/2018 PREOPERATIVE DIAGNOSIS: Acute cholecystitis. POSTOPERATIVE DIAGNOSIS: Acute cholecystitis. SURGEON: Ramesh Catherine MD CORRECTIONS IDENTIFICATION TECHNICIAN: Jhonny Moreau MD SECOND CORRECTIONS IDENTIFICATION TECHNICIAN: Yash Cabrera DO THIRD CORRECTIONS IDENTIFICATION TECHNICIAN: Wiley Hankins DO ANESTHESIA: General. FINDINGS: The patient had distended, non-inflamed, edematous gallbladder. Cystic duct and cystic artery clearly identified in critical view. CT obtained. SPECIMEN: Gallbladder. ESTIMATED BLOOD LOSS: 20 mL. COMPLICATIONS: None. CONDITION: Stable. INDICATION OF THE PROCEDURE: This is a 38-year-old female who presented to the emergency room with complaints of right upper quadrant pain. The patient had an ultrasound showing cholelithiasis. The patient was clinically diagnosed with acute cholecystitis, admitted to the hospital, placed on IV antibiotics and prepped for the OR. The patient was explained the risks and benefits of the procedure, not limited to bleeding, infection, possible injury to biliary tree or other surrounding structures. The patient agreed and surgical consent was obtained. DESCRIPTION OF PROCEDURE: On the date of procedure, the patient was brought to the operating room. She was placed in supine position. Bilateral sequential devices were placed to lower extremities. The patient was then placed under general endotracheal anesthesia which she tolerated well. The patient was then prepped and draped in the usual sterile fashion. After an adequate time-out, the abdominal cavity was entered using a Veress needle. There were good opening pressures when insufflation was started. The abdominal cavity was insufflated to 15 mmHg, which the patient tolerated well. We then proceeded to make a 1-cm infraumbilical incision using a 11-blade. Through this incision, we placed a 11-mm trocar into the abdominal cavity. We now proceeded to place a 5-mm laparoscope and perform a diagnostic laparoscopy. No gross pathology seen or injury from an initial port site insertion. We now proceeded to place three additional 5-mm ports, one through the subxiphoid and two through the right abdomen. All ports were placed under direct visualization. We now proceeded to begin the procedure. We then noted that the patient had some omental adhesions to the gallbladder which were bluntly dissected off. We then proceeded to bluntly dissect the peritoneum off the gallbladder in order to identify the cystic duct and cystic artery. Following dissection, we were able to obtain critical view of safety identifying the cystic duct and cystic artery. Once each structure was clearly isolated, we proceeded to place two distal clips and one proximal clip on each of these structures and then subsequently transected them with Endo María. We now proceeded to remove the gallbladder off the liver fossa using a hook cautery throughout the procedure and while removing the gallbladder, meticulous incision was to obtain adequate hemostasis at all times. Once the gallbladder was removed off the liver, it was placed in an EndoCatch bag and removed through the 11-mm port under direct visualization. The abdominal cavity was then re-insufflated. The right upper quadrant was irrigated, and the liver bed once again was inspected for adequate hemostasis which we confirmed. At this point, we proceeded to suction all the irrigation out. Having been satisfied with our procedure, we proceeded to insufflate the abdominal cavity and remove all trocars. We then proceeded to close the fascia at the 11-mm trocar site using an 0 Vicryl stitch. The laparoscopic port site wounds were then infiltrated with local anesthetic. The skin was reapproximated using a 4-0 Monocryl. Dermabond was subsequently applied to the port sites. The patient tolerated the procedure well. She was brought to the recovery room in stable condition. At the end of the procedure, there was an adequate count to all instruments, lap pads and needles. Ramesh Catherine MD
== END 2018-10-22 19:35 | disposition home or self-care (01) | DRG 263 ==
LOC: H.ER 11:46 → H.ERHOLD 16:42 → H.TEL 10-21 06:20
PROC: 0FT44ZZ Resection of Gallbladder, Percutaneous Endoscopic Approach (ICD-10-PCS; principal; 2018-10-22 11:45)
DX: K80.00 Calculus of gallbladder with acute cholecystitis without obstruction (principal); K76.0 Fatty (change of) liver, not elsewhere classified; E78.1 Pure hyperglyceridemia; E66.9 Obesity, unspecified; Z68.33 Body mass index [BMI] 33.0-33.9, adult

== ENCOUNTER 2018-10-25 21:15 | Emergency (ER) | payer OTHER ==
[2018-10-25 21:32] VITALS: BMI 33.3
[2018-10-26] MEDS ORDERED: Morphine 4 MG/ML VIAL IVP ONE (01:09)
--- NOTE | 2018-10-26 01:13 | ED PDOC ---
HPI: Abdomen Time Seen by Provider: 10/25/18 23:59 Chief Complaint (Nursing): Abdominal Pain Chief Complaint (Provider): abdominal pain History Per: Patient History/Exam Limitations: no limitations Onset/Duration Of Symptoms: Days (2) Current Symptoms Are (Timing): Still Present Location Of Pain/Discomfort: Epigastric Additional Complaint(s): 38 y/o female presents for evaluation of intermittent upper epigastric abdominal pain x 2 days. Denies fever, nausea/vomiting, chest pain, shortness of breath, palpitations, changes in bowel movements, urinary symptoms. Patient is status-post cholecystectomy 10/22. Abnormal Vaginal Bleeding: No Past Medical History Reviewed: Historical Data, Nursing Documentation, Vital Signs Vital Signs: Last Vital Signs Temp 98.5 F 10/25/18 21:31 Pulse 86 10/25/18 21:31 Resp 16 10/25/18 21:31 BP 126/90 10/25/18 21:31 Pulse Ox 100 10/25/18 21:31 - Medical History PMH: Hypercholesterolemia (triglycerides) Denies: HIV - Surgical History Surgical History: (x 1) - Family History Family History: States: Unknown Family Hx - Immunization History Hx Tetanus Toxoid Vaccination: Yes Hx Influenza Vaccination: Yes Hx Pneumococcal Vaccination: Yes - Home Medications Home Medications: Ambulatory Orders Medication Instructions Recorded Docusate Sodium [Colace] 200 mg PO DAILY PRN #30 capsule 10/22/18 Ibuprofen [Motrin Tab] 600 mg PO Q6 PRN #20 tab 10/22/18 oxyCODONE/Acetaminophen [Percocet 1 ea PO Q6 PRN #20 tab 10/22/18 5/325 mg Tab] Famotidine [Pepcid] 20 mg PO BID #20 tab 10/26/18 - Allergies Allergies/Adverse Reactions: Allergies Allergy/AdvReac Type Severity Reaction Status Date / Time No Known Allergies Allergy Verified 10/25/18 21:31 Review of Systems ROS Statement: Except As Marked, All Systems Reviewed And Found Negative Gastrointestinal: Positive for: Abdominal Pain Physical Exam - Reviewed Nursing Documentation Reviewed: Yes Vital Signs Reviewed: Yes - Physical Exam Appears: Positive for: Well, Non-toxic, No Acute Distress Head Exam: Positive for: ATRAUMATIC, NORMAL INSPECTION, NORMOCEPHALIC Skin: Positive for: Normal Color Eye Exam: Positive for: Normal appearance ENT: Positive for: Normal ENT Inspection Cardiovascular/Chest: Positive for: Regular Rate, Rhythm Respiratory: Positive for: Normal Breath Sounds Gastrointestinal/Abdominal: Positive for: Bowel Sounds, Soft, Tenderness (epigastric), Other (surgical incision sites without drainage, erythema, or surrounding tenderness) Back: Positive for: Normal Inspection Extremity: Positive for: Normal ROM Neurological/Psych: Positive for: Awake, Alert, Oriented (x3) - Laboratory Results Result Diagrams: 10/26/18 01:37 10/26/18 01:37 - ECG ECG: Positive for: Viewed By Me (reviewed by ED attending) ECG Rhythm: Positive for: Sinus Rhythm O2 Sat by Pulse Oximetry: 100 - Progress ED Course And Treament: -upreg -ekg -cbc -cmp -lipase -RUQ u/s -IV toradol -IV pepcid Ultrasound of the right upper quadrant. Indication: Epigastric pain. Elevated LFTs. Status post cholecystectomy. Technique: Real-time ultrasound images were obtained. Comparison: 10/20/2018 01:19 PM EDT: SD\US: ABDOMEN LIMITED. Findings: Cholecystectomy. The liver measures 16.8 cm. Nondilated common bile duct measuring 4.7 mm. Unremarkable pancreas. Unremarkable IVC. Unremarkable aorta. Unremarkable right kidney. Impression: Unremarkable exam On re-eval, patient states pain resolved. Patient educated on findings, discharged with rx Pepcid Patient states she has follow up appointment at [facility] on 10/30; advised to follow up as scheduled Patient educated on elevated LFT's, advised GI follow up Return precautions given Disposition - Clinical Impression Clinical Impression: Abdominal pain - Patient ED Disposition Is Patient to be Admitted: No Counseled Patient/Family Regarding: Studies Performed, Diagnosis, Need For Followup, Rx Given - Disposition Referrals: Cricket Hernandez MD [Primary Care Provider] - [facility] [Outside] Hank Pelayo MD [Staff Provider] - Disposition: Routine/Home Disposition Time: 04:30 Condition: IMPROVED Prescriptions: Famotidine [Pepcid] 20 mg PO BID #20 tab Instructions: Acute Abdomen (Belly Pain) Print Language: ITALIAN
[2018-10-26] MEDS ORDERED: Morphine 4 MG/ML VIAL ONE (01:26)
[2018-10-26 02:12] LABS: BASO % 0.2 % (0.0-2.0); EOS # 0.1 K/uL (0.0-0.7); EOS % 0.8 % (0.0-4.0); HEMOGLOBIN 14.1 g/dL (12.0-16.0); LYMPH # 1.7 K/uL (1.0-4.3); LYMPH % 18.1 % (20.0-40.0); MEAN CORPUSCULAR HEMOGLOBIN 28.6 pg (27.0-31.0); MEAN CORPUSCULAR HGB CONC 34.1 g/dL (33.0-37.0); MEAN PLATELET VOLUME 8.2 fl (7.2-11.7); MONO # 0.7 K/uL (0.0-0.8); MONO % 7.5 % (0.0-10.0); NEUT % 73.4 % (50.0-75.0); RBC 4.91 Mil/uL (3.80-5.20); RED CELL DISTRIBUTION WIDTH 12.2 % (11.5-14.5); WHITE BLOOD COUNT 9.5 K/uL (4.8-10.8)
[2018-10-26 02:34] LABS: ALB/GLOB RATIO 1.4 (1.0-2.1); ALBUMIN 4.5 g/dL (3.5-5.0); ALT/SGPT 118 U/L (9-52); AST/SGOT 147 U/L (14-36); BLOOD UREA NITROGEN 12 mg/dl (7-17); CALCIUM 9.3 mg/dL (8.4-10.2); GFR NON-AFRICAN AMERICAN > 60; LIPASE 99 U/L (23-300)
[2018-10-26 04:32] VITALS: BP 103/59; PULSE 64; RESP 17; TEMP 98
[2018-10-26 04:34] VITALS: O2SAT 100
--- NOTE | 2018-10-26 07:15 | CARD ---
APPROVED REPORT Date of service: 10/25/2018 EKG Measurement Heart [id number] <Conclusion> Normal Sinus rhythm Normal Electrocardiogram
--- NOTE | 2018-10-26 14:10 | US ---
Date of service: 10/26/2018 HISTORY: epigastric pain, elevated LFTs s/p cholecystectomy COMPARISON: None. TECHNIQUE: Sonographic evaluation of the right upper quadrant of the abdomen. FINDINGS: LIVER: Measures 16.8 cm in length. Normal echogenicity of the liver parenchyma. No mass. No biliary ductal dilatation. Normal hepatopetal portal venous flow demonstrated. GALLBLADDER: Status post cholecystectomy on 10/22/2018. No mass or fluid collection identified in the gallbladder fossa. COMMON BILE DUCT: Measures 4-5 mm. No stones. No dilatation. PANCREAS: Unremarkable as visualized. No mass. No ductal dilatation. RIGHT KIDNEY: Measures 11.7 cm in length. Normal echogenicity. No calculus, mass, or hydronephrosis. AORTA: No aneurysmal dilatation. IVC: Unremarkable. OTHER FINDINGS: None . IMPRESSION: Status post cholecystectomy. Unremarkable.
== END 2018-10-26 04:50 | disposition home or self-care (01) ==
LOC: H.ER 21:15
DX: R10.13 Epigastric pain (principal); R94.5 Abnormal results of liver function studies; E78.00 Pure hypercholesterolemia, unspecified
CPT/HCPCS: 76705; 80053; 81025; 83690; 85025; 93005; 96374; 99284; J1885